=== PATIENT | female | born 2000 | race Caucasian/White ===

== ENCOUNTER 2021-12-30 11:57 | Day surgery (SDC) | payer BC ==
[2021-12-22 15:46] VITALS: BMI 20.9
[2021-12-30 13:51] VITALS: RESP 18; TEMP 97
[2021-12-30 14:11] VITALS: BP 104/54; PULSE 68
== END 2021-12-30 14:19 | disposition home or self-care (01) ==
LOC: FASU-ENDO 11:57
PROVIDERS: ATTEND Internal Medicine Gastroenterology
PROC: 0DJD8ZZ Inspection of Lower Intestinal Tract, Via Natural or Artificial Opening Endoscopic (ICD-10-PCS; principal; 2021-12-30 13:28)
DX: K64.1 Second degree hemorrhoids (principal); K64.8 Other hemorrhoids
CPT/HCPCS: 84703

== ENCOUNTER 2022-02-24 11:51 | Day surgery (SDC) | payer BC ==
[2022-02-20 10:11] VITALS: BMI 20.9
[2022-02-24] MEDS ORDERED: LIDOCAINE HCL/PF 2% SDV 5ML VIAL ONE (13:02)
[2022-02-24 14:36] VITALS: BP 114/70; PULSE 75; RESP 15; TEMP 97
== END 2022-02-24 13:45 | disposition home or self-care (01) ==
LOC: FASU-ENDO 11:51
PROVIDERS: ATTEND Internal Medicine Gastroenterology
PROC: 0DB68ZX Excision of Stomach, Via Natural or Artificial Opening Endoscopic, Diagnostic (ICD-10-PCS; 2022-02-24)
PROC: 0DB48ZX Excision of Esophagogastric Junction, Via Natural or Artificial Opening Endoscopic, Diagnostic (ICD-10-PCS; 2022-02-24)
PROC: 0DB98ZX Excision of Duodenum, Via Natural or Artificial Opening Endoscopic, Diagnostic (ICD-10-PCS; principal; 2022-02-24 13:10)
DX: K29.50 Unspecified chronic gastritis without bleeding (principal); K20.90 Esophagitis, unspecified without bleeding; R10.13 Epigastric pain
CPT/HCPCS: 81025; 88305-TC; 88342-TC